=== PATIENT | male | born 1985 | race Caucasian/White ===

== ENCOUNTER 2020-04-20 12:14 | Emergency (ER) | payer BC ==
--- NOTE | 2020-04-20 13:34 | EDM.PDOC ---
ED HPI GENERAL MEDICAL PROBLEM - General Chief Complaint: Abdominal Pain Stated Complaint: ABDOMINAL PAIN Time Seen by Provider: 04/20/20 13:34 Source of Information: Reports: Patient History Limitations: Reports: No Limitations - History of Present Illness INITIAL COMMENTS - FREE TEXT/NARRATIVE: 35-year-old male presents to the ED with recurrent bouts of severe epigastric upper abdominal pain early this morning. He states it awoke him from sleep and then it continued to bother him intermittently throughout the night. Pain seemed to be gone for a while this morning and then when he ate it seemed to get worse again. He states he had a nap in the waiting room while waiting for a bed in the ED. And at present he is pain-free. Pain was bad enough to make him nauseated but he never vomited. Pain did not radiate through to his back. He states he did have a normal bowel movement this morning that was normal in color without any evidence of blood or black tarry stool. He was concerned he may have an ulcer. He denies any recent alcohol use. [place] ever having to use medication for constipation. He has no diarrhea. No associated fever or chills. He has had no previous abdominal surgery. Onset: Today Onset Date: 04/20/20 Onset Time: 01:00 Duration: Intermittent, Waxing/Waning Location: Reports: Abdomen (Recurrent upper abdominal colicky type pain for the last 12 hours) Quality: Reports: Sharp, Stabbing, Other Severity: Moderate (Colicky type pain) Improves with: Reports: Other Worsens with: Reports: Eating (Moves spontaneously) Context: Denies: Activity ( but was made worse by eating a meal this morning.), Exercise, Lifting, Sick Contact, Trauma, Other Associated Symptoms: Reports: Nausea/Vomiting (Nausea slightly with the intensity of the pain. No vomiting). Denies: Loss of Appetite, Malaise, Shortness of Breath, Syncope Treatments [employer]: Reports: Other (see below) (None.) Upper Abdomen Pain Score (Numeric/FACES): 3 - Related Data Allergies Allergy/AdvReac Type Severity Reaction Status Date / Time No Known Allergies Allergy Verified 11/24/18 07:30 Home Meds: Home Meds . [No Known Home Meds] 04/20/20 [History] Past Medical History - Past Health History Medical/Surgical History: Denies Medical/Surgical History Musculoskeletal History: Reports: Other (See Below) Other Musculoskeletal History: spinal stenosis to the neck area Social & Family History - Tobacco Use Smoking Status *Q: Never Smoker - Caffeine Use Caffeine Use: Reports: Soda - Recreational Drug Use Recreational Drug Use: No - Living Situation & Occupation Living situation: Reports: Occupation: Employed ED ROS GENERAL - Review of Systems Review Of Systems: See Below Constitutional: Reports: No Symptoms HEENT: Reports: No Symptoms Respiratory: Reports: No Symptoms Cardiovascular: Reports: No Symptoms Endocrine: Reports: No Symptoms GI/Abdominal: Reports: Abdominal Pain (See history of present illness), Nausea (Mild nausea associated with the intensity of the pain when it is present.). Denies: Constipation, Diarrhea, Hematemesis, Hematochezia, Vomiting : Reports: No Symptoms Musculoskeletal: Reports: No Symptoms Skin: Reports: No Symptoms Neurological: Reports: No Symptoms Psychiatric: Reports: No Symptoms ED EXAM, GI/ABD - Physical Exam Exam: See Below Exam Limited By: No Limitations General Appearance: Alert, WD/WN, No Apparent Distress, Other (Well-dressed temperature is 36.9 pulse is 71 respiratory is 20 BP 145/83 pulse ox 98% on room air) Eyes: Bilateral: Normal Appearance Throat/Mouth: Normal Inspection, Normal Lips, Normal Teeth, Normal Oropharynx Head: Atraumatic, Normocephalic Neck: Normal Inspection, Supple, Non-Tender, Full Range of Motion. No: Lymphadenopathy (L), Lymphadenopathy (R) Respiratory/Chest: No Respiratory Distress, Lungs Clear, Normal Breath Sounds, No Accessory Muscle Use Cardiovascular: Normal Peripheral Pulses, Regular Rate, Rhythm, No Edema, No Murmur, No Rub GI/Abdominal Exam: Soft, Non-Tender, No Organomegaly, No Abnormal Bruit, Abnormal Bowel Sounds (Bowel sounds are). No: Hepatomegaly, Splenomegaly Back Exam: Normal Inspection, Full Range of Motion. No: CVA Tenderness (L), CVA Tenderness (R) Extremities: Normal Inspection, Normal Range of Motion, Non-Tender, No Pedal Edema Neurological: Alert, Oriented, CN II-XII Intact, Normal Cognition Psychiatric: Normal Affect, Normal Mood Skin Exam: Warm, Dry, Intact, Normal Color, No Rash Course - Vital Signs Last Recorded V/S: Last Vital Signs Temp 36.9 C 04/20/20 13:34 Pulse 71 04/20/20 13:34 Resp 20 04/20/20 13:34 BP 145/83 H 04/20/20 13:34 Pulse Ox 98 04/20/20 13:34 - Orders/Labs/Meds Orders: Active Orders 24 hr Category Date Time Status Abdomen 1V Flat [CR] Stat Exams 04/20/20 13:48 Taken Meds: Medications Discontinued Medications Generic Name Dose Route Start Last Admin Trade Name Tahir PRN Reason Stop Dose Admin Magnesium Citrate 240 ml 04/20/20 15:10 04/20/20 15:20 Citrate Of Magnesia PO 04/20/20 15:11 240 ml ONETIME ONE Administration - Radiology Interpretation Free Text/Narrative:: 35-year-old male presents to the ED with recurrent bouts of severe upper abdominal epigastric abdominal pain off and on since there 100 hours this morning. He states the pain will come for a period of time and then dissipate for period of time suggesting a strong colicky component to the pain. Associated nauseated with the intensity of the pain but he is never vomited. He had a normal bowel movement this morning that did not relieve the discomfort. At the time of my examination in the ED he is pain-free and he has a benign abdomen other than bowel sounds are scarce in all 4 quadrants. There is no guarding. No signs of a surgical abdomen. Plan 1 view of the abdomen will be done to look for constipation in the transverse colon. If this is normal he will have lab work performed - Re-Assessments/Exams Free Text/Narrative Re-Assessment/Exam: 04/20/20 15:00: KUB reveals a stool plug right at the hepatic flexure where it starts at the transverse colon. There is stool throughout the transverse colon and a little bit her stool plug on the splenic flexure partial of the colon. The rectum is empty. Patient has had no further pain while in the ED. Therefore no labs are going to be done. I am going to place him on magnesium citrate 8 ounces by mouth mixed with 6 ounces of Gatorade or Powerade to provide bowel cleanse. He will return to medical care if abdominal pain is not completely resolved with this treatment plan. Departure - Departure Time of Disposition: 15:08 Disposition: Home, Self-Care 01 Condition: Fair Clinical Impression: Constipation by delayed colonic transit Abdominal pain Qualifiers: Abdominal location: upper abdomen, unspecified Qualified Code(s): R10.10 - Upper abdominal pain, unspecified - Discharge Information *PRESCRIPTION DRUG MONITORING PROGRAM REVIEWED*: Not Applicable *COPY OF PRESCRIPTION DRUG MONITORING REPORT IN PATIENT BONG: Not Applicable Instructions: Constipation, Adult Referrals: Sydnie Agustin PA-C [Primary Care Provider] - Forms: ED Department Discharge Additional Instructions: Evaluation in the emergency room today in regards to development of recurrent bouts of upper abdominal cramping pain since early this morning. Pain seems to be a little worsened by eating. Examination reveals active bowel sounds in all 4 quadrants. No signs of any serious problems in the abdomen on examination. X-ray of the abdomen shows a stool plug at the hepatic flexure which is in the right upper quadrant of the abdomen and stool scattered throughout the transverse colon which travels across the upper abdomen. It appears that intermittently you are getting severe colicky pain from cramping of the small bowel to push the stool plug to the other side of the bowel to empty. Suggest treatment to be magnesium citrate or Citroma 8 ounces mixed with 6 ounces of Gatorade or Powerade or juice of choice taken once orally. This will usually start to work within 1 to 2 hours and usually will produce 3 or 4 bowel mo vements. This should relieve your abdominal pain completely. We use this because it does not cause any cramping. Eat and drink per normal. Return to medical care if pain not markedly improved after bowel cleanse. Sepsis Event Note (ED) - Focused Exam Vital Signs: Vital Signs Temp Pulse Resp BP Pulse Ox 04/20/20 13:34 36.9 C 71 20 145/83 H 98 - My Orders Last 24 Hours: My Active Orders 04/20/20 13:48 Abdomen 1V Flat [CR] Stat - Assessment/Plan Last 24 Hours: My Active Orders 04/20/20 13:48 Abdomen 1V Flat [CR] Stat
[2020-04-20] MEDS ORDERED: Magnesium Citrate Solution 296 ML Bottle PO ONE (15:10)
--- NOTE | 2020-04-21 13:21 | CR ---
Abdomen: Supine view of the abdomen was obtained. Comparison: No prior abdominal x-ray. Bony structures are within normal limits for the patient's age. Bowel gas pattern appears normal. No abnormal calcifications or soft tissue abnormality is seen. Impression: 1. Nothing acute is seen on supine abdominal x-ray. Diagnostic code #1 This report was dictated in MDT
== END 2020-04-20 15:20 | disposition home or self-care (01) ==
LOC: JD.ED 12:14
DX: K59.01 Slow transit constipation (principal)
CPT/HCPCS: 74018; 99284; A9270; 99282